=== PATIENT | female | born 1950 ===

== ENCOUNTER 2018-09-07 08:20 | Day surgery (SDC) | payer MEDICARE ==
[2018-09-07] MEDS ORDERED: Lactated Ringer's 500 ML IV ONE (08:57)
[2018-09-07 09:06] VITALS: BMI 26.5
[2018-09-07] MEDS ORDERED: Propofol 10 mg/ml Inj (20 ML) ONE (09:17)
[2018-09-07 09:39] VITALS: PULSE 67; RESP 16; TEMP 97
[2018-09-07 09:46] VITALS: BP 111/61; O2SAT 96
== END 2018-09-07 09:46 | disposition home or self-care (01) ==
LOC: H.ENDO 08:20
PROVIDERS: ATTEND Internal Medicine Gastroenterology
DX: K30 Functional dyspepsia (principal); K21.0 Gastro-esophageal reflux disease with esophagitis; K44.9 Diaphragmatic hernia without obstruction or gangrene; K31.89 Other diseases of stomach and duodenum; K29.50 Unspecified chronic gastritis without bleeding
CPT/HCPCS: 43239; 88305; J2001; J2704; J7120